=== PATIENT | female | born 1955 | race Caucasian/White ===

== ENCOUNTER 2020-06-08 16:06 | Emergency (ER) | payer SELFPAY ==
[2020-06-08 17:48] VITALS: BP 114/74; PULSE 108; TEMP 39.5; O2SAT 95; BMI 41.9
--- NOTE | 2020-06-08 17:49 | XR_ITS ---
EXAMINATION: XR CHEST CLINICAL INFORMATION: Fever. COMPARISON: Chest x-ray 03/25/[address] 03/25/2019 TECHNIQUE: Frontal view of the chest was obtained. FINDINGS: Chronic enlargement of cardiac silhouette. The lungs are adequately aerated. There is no lobar consolidation. Subtle linear opacity of the right lung base is most suggestive of atelectasis. No pleural effusion. No pneumothorax. Similar fullness of the superior mediastinum consistent with massively enlarged left lobe of the thyroid gland. XR/XR chest 1V IMPRESSION: No acute pulmonary pathology.
--- NOTE | 2020-06-08 18:00 | ED.FEVER ---
HPI - Fever General Chief Complaint: Dizziness Stated Complaint: fever Time Seen by Provider: 06/08/20 17:31 Source: patient Mode of arrival: ambulatory Limitations: no limitations History of Present Illness HPI Narrative: 64yoF c PMHx of prediabetic, HTN, CHF, arthritis and mass in neck presenting to the ED c c/o fever, generalized weakness and dizziness x 2 days. Patient reports she resides in [place] and came here to visit her son in her family and she arrived on the plane on Sunday night. Reports that she recently diagnosed herself with a UTI and self-medicated herself with antibiotics for UTI due to she was going more frequently although in small amounts. Denies any dysuria. Denies sick contacts. Denies any other symptoms complaints or concerns at this time. Related Data Previous Rx's Medication Instructions Recorded acetaminophen [Tylenol] 650 mg PO Q6H PRN #14 tab 06/08/20 ibuprofen 800 mg PO Q8H PRN #14 tab 06/08/20 levofloxacin 750 mg PO DAILY 3 Days #3 tab 06/08/20 Allergies Allergy/AdvReac Type Severity Reaction Status Date / Time No Known Allergies Allergy Unverified 04/29/20 19:43 [No Known Allergies*] Review of Systems Review of Systems: Constitutional : + Fever, + Chills, + Fatigue, + Malaise ENT/Mouth : No Ear Pain, No Nasal Congestion, No Sinus Pain, No Hoarseness, No sore throat, No Rhinorrhea Eyes: No Eye Pain, No Swelling, No Vision Changes Cardiovascular : No Chest Pain, No SOB, No Dyspnea on Exertion, No Orthopnea, No Edema, No Palpitations Respiratory : No Cough, No Sputum, No Wheezing, No Dyspnea Gastrointestinal : No Nausea, No Vomiting, No Diarrhea, No Constipation, No abdominal Pain, No Hematochezia, No Melena Genitourinary : no irregular bleeding, No Dysuria, No Urinary Frequency, No Hematuria, No Urinary Incontinence, No Urgency, No Flank Pain, No Urinary Flow Changes, No Hesitancy Musculoskeletal : No joint pain, No Myalgias, No Joint Swelling Skin : No Skin Lesions, No rash Neuro : + Weakness, + Dizziness, No Numbness, No Paresthesias, No Headache Heme/Lymph: No Lymphadenopathy Yes all other systems are reviewed and are negative PMFSH Past Medical History Attestation statement: The following information was validated with the patient. Medical History Arthritis CHF (congestive heart failure) Hypertension Mass in neck Prediabetes Social History Social History Advance Directives: No Advance Directives Information Provided: Yes Physical Exam Vital Signs: Vital Signs: Vital Signs Temp Pulse BP Pulse Ox 06/08/20 17:48 103.1 F H 108 H 114/74 95 Body Mass Index 41.9 vital signs have been reviewed as normal and appeared to be correct. Blood pressure normal. Heart rate tachycardic. Respiration rate normal. Temperature febrile. Oxygen saturation normal. Appearance: Alert. Oriented X3. No acute distress. Head: Normal external exam. Normocephalic. Atraumatic. No العر[place] signs noted. No raccoon eyes noted Eyes: PERRLA. EOMI. Conjunctiva and sclera normal. Eyelids normal. ENT: EAC normal. TM's Normal. Pharynx normal. Uvula midline. Moist mucous membranes. No trismus noted. No drooling noted. No muffled voice noted. Neck: Normal inspection. Neck supple. FROM. No adenopathy. Thyroid Normal. No meningeal signs. No neck mass noted. CVS: Normal heart rate and rhythm. Heart sound normal. No murmurs noted. Pulses normal throughout. Respiratory: No respiratory distress. Painless inspiration. Breath sounds normal. No wheezes/rales/rhonchi noted. Chest nontender. No accessory muscle usage noted or decreased air movement noted. Abdomen: Soft and nontender. Bowel sounds normal in all 4 quadrants. No distention noted. No organomegaly noted. No visible injury noted. Back: No CVA tenderness. Full range of motion noted. Skin: Skin warm and dry. Normal skin color. Normal skin turgor. No rashes/lesions/lacerations noted. Extremities: No lower extremity edema. Extremities exhibit normal range of motion. Extremities nontender. Neuro: Oriented X 3. No motor deficit. No sensory deficit. Reflexes normal. Course Course Course Narrative: 17:50PM - 64yoF c PMHx of prediabetic, HTN, CHF, arthritis and mass in neck presenting to the ED c c/o fever, generalized weakness and dizziness x 2 days. Patient reports she resides in [place] and came here to visit her son in her family and she arrived on the plane on Sunday night. Reports that she recently diagnosed herself with a UTI and self-medicated herself with antibiotics for UTI due to she was going more frequently although in small amounts. Denies any dysuria. Denies sick contacts. Denies any other symptoms complaints or concerns at this time. - Concern for COVID-19 vs PNA vs UTI - Plan: Labs, CXR, COVID-19 swab, EKG, Lactic acid, blood cultures. Provide IVFs and 975mg of tylenol then re-evaluate. Reevaluation(s) Reevaluation #1: - Patient's sodium at 132. Potassium 3.0. BUN 28. Calcium at 7.8. Random glucose 285. Mild elevation in AST/ALT. LDH mildly elevated. Otherwise all other labs are within normal limits including lactic acid which is 1.2. COVID-19 PCR swab negative. UA negative for nitrates although 5-9 white blood cells therefore will treat for UTI. Chest x-ray within normal limits no acute processes noted. - will replace the patient's potassium with p.o. potassium at this time. Will DC home with antibiotics for UTI and instructions to return if any new or worsening symptoms and to follow up with primary care provider. Patient understands agrees with this plan. Time: 20:04 MDM - Fever Medical Records Attestation: I reviewed the patient's medical records. Lab Data Attestation: I reviewed the patient's lab results. Result diagrams: 06/08/20 18:21 06/08/20 19:14 Labs: Lab Results 06/08/20 06/08/20 06/08/20 Range/Units 18:20 18:20 18:21 WBC 5.9 (4.8-10.8) X10*3/uL RBC 4.55 (4.20-5.50) X10*6/uL Hgb 13.5 (12.0-16.0) g/dl Hct 40.6 (37-47) % MCV 89.2 (80-98) fL MCH 29.7 (27.0-33.0) pg MCHC 33.3 (31.0-35.0) g/dl RDW 13.2 (11.0-16.0) % Plt Count 200 (160-400) X10*3/uL MPV 11.0 (9.4-12.3) fL Immature Gran % (Auto) 0.3 (0.0-0.4) % Neut % (Auto) 68.1 (45-73) % Lymph % (Auto) 20.6 (20-40) % [place] % (Auto) 10.7 (2-11) % Eos % (Auto) 0.0 (0-4) % Baso % (Auto) 0.3 (0-2) % Lymph # (Auto) 1.2 (1.2-4.9) X10*3/uL [place] # (Auto) 0.6 (0.1-1.2) X10*3/uL Eos # (Auto) 0.0 (0.0-0.4) X10*3/uL Baso # (Auto) 0.0 (0.0-0.2) X10*3/uL Abs Immat Gran (auto) 0.02 (0.00-0.03) X10*3/uL Absolute Neuts (auto) 4.0 (2.0-8.3) X10*3/uL Absolute Nucleated RBC 0.000 (0.0-0.012) X10*3/uL Nucleated RBC % (auto) 0.0 (0.0-0.2) /100WBC PT INR Sodium Cancelled Potassium Cancelled Chloride Cancelled Carbon Dioxide Cancelled Anion Gap Cancelled BUN Cancelled Creatinine Cancelled Estim Creat Clear Calc Cancelled Estimated GFR Cancelled Random Glucose Cancelled Lactic Acid (0.5-2.0) mmol/L Calcium Cancelled Magnesium Cancelled Ferritin Cancelled Total Bilirubin Cancelled Direct Bilirubin Cancelled AST Cancelled ALT Cancelled Alkaline Phosphatase Cancelled Lactate Dehydrogenase Cancelled B-Natriuretic Peptide (<100) pg/mL Total Protein Cancelled Albumin Cancelled Procalcitonin Cancelled Urine Color Urine Appearance Urine pH (5.0-8.0) Ur Specific [place] (1.005-1.025) Urine Protein (NEG-TRACE) MG/DL Urine Glucose (UA) (NEG) MG/DL Urine Ketones (NEG) MG/DL Urine Blood (NEG) Urine Nitrite (NEG) Ur Leukocyte Esterase (NEG) Urine RBC (0) /HPF Urine WBC (0-4) /HPF Ur Squamous Epith Cells /LPF Urine Bacteria /LPF Urine Mucus /LPF Coronavirus (PCR) (Negative) 06/08/20 06/08/20 06/08/20 Range/Units 18:21 18:21 18:21 WBC (4.8-10.8) X10*3/uL RBC (4.20-5.50) X10*6/uL Hgb (12.0-16.0) g/dl Hct (37-47) % MCV (80-98) fL MCH (27.0-33.0) pg MCHC (31.0-35.0) g/dl RDW (11.0-16.0) % Plt Count (160-400) X10*3/uL MPV (9.4-12.3) fL Immature Gran % (Auto) (0.0-0.4) % Neut % (Auto) (45-73) % Lymph % (Auto) (20-40) % [place] % (Auto) (2-11) % Eos % (Auto) (0-4) % Baso % (Auto) (0-2) % Lymph # (Auto) (1.2-4.9) X10*3/uL [place] # (Auto) (0.1-1.2) X10*3/uL Eos # (Auto) (0.0-0.4) X10*3/uL Baso # (Auto) (0.0-0.2) X10*3/uL Abs Immat Gran (auto) (0.00-0.03) X10*3/uL Absolute Neuts (auto) (2.0-8.3) X10*3/uL Absolute Nucleated RBC (0.0-0.012) X10*3/uL Nucleated RBC % (auto) (0.0-0.2) /100WBC PT Cancelled INR Cancelled Sodium Potassium Chloride Carbon Dioxide Anion Gap BUN Creatinine Estim Creat Clear Calc Estimated GFR Random Glucose Lactic Acid (0.5-2.0) mmol/L Calcium Magnesium Ferritin Total Bilirubin Direct Bilirubin AST ALT Alkaline Phosphatase Lactate Dehydrogenase B-Natriuretic Peptide 87 (<100) pg/mL Total Protein Albumin Procalcitonin Urine Color Urine Appearance Urine pH (5.0-8.0) Ur Specific [place] (1.005-1.025) Urine Protein (NEG-TRACE) MG/DL Urine Glucose (UA) (NEG) MG/DL Urine Ketones (NEG) MG/DL Urine Blood (NEG) Urine Nitrite (NEG) Ur Leukocyte Esterase (NEG) Urine RBC (0) /HPF Urine WBC (0-4) /HPF Ur Squamous Epith Cells /LPF Urine Bacteria /LPF Urine Mucus /LPF Coronavirus (PCR) NEGATIVE (Negative) 06/08/20 06/08/20 06/08/20 Range/Units 18:21 18:44 19:14 WBC (4.8-10.8) X10*3/uL RBC (4.20-5.50) X10*6/uL Hgb (12.0-16.0) g/dl Hct (37-47) % MCV (80-98) fL MCH (27.0-33.0) pg MCHC (31.0-35.0) g/dl RDW (11.0-16.0) % Plt Count (160-400) X10*3/uL MPV (9.4-12.3) fL Immature Gran % (Auto) (0.0-0.4) % Neut % (Auto) (45-73) % Lymph % (Auto) (20-40) % [place] % (Auto) (2-11) % Eos % (Auto) (0-4) % Baso % (Auto) (0-2) % Lymph # (Auto) (1.2-4.9) X10*3/uL [place] # (Auto) (0.1-1.2) X10*3/uL Eos # (Auto) (0.0-0.4) X10*3/uL Baso # (Auto) (0.0-0.2) X10*3/uL Abs Immat Gran (auto) (0.00-0.03) X10*3/uL Absolute Neuts (auto) (2.0-8.3) X10*3/uL Absolute Nucleated RBC (0.0-0.012) X10*3/uL Nucleated RBC % (auto) (0.0-0.2) /100WBC PT INR Sodium 132 L Potassium 3.0 L Chloride 94 L Carbon Dioxide 27 Anion Gap 14 BUN 28 H Creatinine 1.34 Estim Creat Clear Calc 40.8 Estimated GFR 40 Random Glucose 285 H Lactic Acid 1.2 (0.5-2.0) mmol/L Calcium 7.2 L Magnesium Ferritin Total Bilirubin Direct Bilirubin AST ALT Alkaline Phosphatase Lactate Dehydrogenase B-Natriuretic Peptide (<100) pg/mL Total Protein Albumin Procalcitonin Urine Color YELLOW Urine Appearance HAZY Urine pH 6.0 (5.0-8.0) Ur Specific [place] 1.025 (1.005-1.025) Urine Protein 2+ H (NEG-TRACE) MG/DL Urine Glucose (UA) 250 H (NEG) MG/DL Urine Ketones NEG (NEG) MG/DL Urine Blood 2+ H (NEG) Urine Nitrite NEG (NEG) Ur Leukocyte Esterase NEG (NEG) Urine RBC 1-4 (0) /HPF Urine WBC 5-9 H (0-4) /HPF Ur Squamous Epith Cells 2+ /LPF Urine Bacteria 2+ /LPF Urine Mucus 1+ /LPF Coronavirus (PCR) (Negative) 06/08/20 06/08/20 06/08/20 Range/Units 19:14 19:14 19:14 WBC (4.8-10.8) X10*3/uL RBC (4.20-5.50) X10*6/uL Hgb (12.0-16.0) g/dl Hct (37-47) % MCV (80-98) fL MCH (27.0-33.0) pg MCHC (31.0-35.0) g/dl RDW (11.0-16.0) % Plt Count (160-400) X10*3/uL MPV (9.4-12.3) fL Immature Gran % (Auto) (0.0-0.4) % Neut % (Auto) (45-73) % Lymph % (Auto) (20-40) % [place] % (Auto) (2-11) % Eos % (Auto) (0-4) % Baso % (Auto) (0-2) % Lymph # (Auto) (1.2-4.9) X10*3/uL [place] # (Auto) (0.1-1.2) X10*3/uL Eos # (Auto) (0.0-0.4) X10*3/uL Baso # (Auto) (0.0-0.2) X10*3/uL Abs Immat Gran (auto) (0.00-0.03) X10*3/uL Absolute Neuts (auto) (2.0-8.3) X10*3/uL Absolute Nucleated RBC (0.0-0.012) X10*3/uL Nucleated RBC % (auto) (0.0-0.2) /100WBC PT INR Sodium Potassium Chloride Carbon Dioxide Anion Gap BUN Creatinine Estim Creat Clear Calc Estimated GFR Random Glucose Lactic Acid (0.5-2.0) mmol/L Calcium Magnesium 2.6 Ferritin Total Bilirubin 0.4 Direct Bilirubin 0.2 AST 42 H ALT 40 H Alkaline Phosphatase 92 Lactate Dehydrogenase 257 H B-Natriuretic Peptide (<100) pg/mL Total Protein 5.9 L Albumin 3.3 L Procalcitonin Urine Color Urine Appearance Urine pH (5.0-8.0) Ur Specific [place] (1.005-1.025) Urine Protein (NEG-TRACE) MG/DL Urine Glucose (UA) (NEG) MG/DL Urine Ketones (NEG) MG/DL Urine Blood (NEG) Urine Nitrite (NEG) Ur Leukocyte Esterase (NEG) Urine RBC (0) /HPF Urine WBC (0-4) /HPF Ur Squamous Epith Cells /LPF Urine Bacteria /LPF Urine Mucus /LPF Coronavirus (PCR) (Negative) 06/08/20 06/08/20 Range/Units 19:14 19:14 WBC (4.8-10.8) X10*3/uL RBC (4.20-5.50) X10*6/uL Hgb (12.0-16.0) g/dl Hct (37-47) % MCV (80-98) fL MCH (27.0-33.0) pg MCHC (31.0-35.0) g/dl RDW (11.0-16.0) % Plt Count (160-400) X10*3/uL MPV (9.4-12.3) fL Immature Gran % (Auto) (0.0-0.4) % Neut % (Auto) (45-73) % Lymph % (Auto) (20-40) % [place] % (Auto) (2-11) % Eos % (Auto) (0-4) % Baso % (Auto) (0-2) % Lymph # (Auto) (1.2-4.9) X10*3/uL [place] # (Auto) (0.1-1.2) X10*3/uL Eos # (Auto) (0.0-0.4) X10*3/uL Baso # (Auto) (0.0-0.2) X10*3/uL Abs Immat Gran (auto) (0.00-0.03) X10*3/uL Absolute Neuts (auto) (2.0-8.3) X10*3/uL Absolute Nucleated RBC (0.0-0.012) X10*3/uL Nucleated RBC % (auto) (0.0-0.2) /100WBC PT INR Sodium Potassium Chloride Carbon Dioxide Anion Gap BUN Creatinine Estim Creat Clear Calc Estimated GFR Random Glucose Lactic Acid (0.5-2.0) mmol/L Calcium Magnesium Ferritin 1670 H Total Bilirubin Direct Bilirubin AST ALT Alkaline Phosphatase Lactate Dehydrogenase B-Natriuretic Peptide (<100) pg/mL Total Protein Albumin Procalcitonin 2.34 Urine Color Urine Appearance Urine pH (5.0-8.0) Ur Specific [place] (1.005-1.025) Urine Protein (NEG-TRACE) MG/DL Urine Glucose (UA) (NEG) MG/DL Urine Ketones (NEG) MG/DL Urine Blood (NEG) Urine Nitrite (NEG) Ur Leukocyte Esterase (NEG) Urine RBC (0) /HPF Urine WBC (0-4) /HPF Ur Squamous Epith Cells /LPF Urine Bacteria /LPF Urine Mucus /LPF Coronavirus (PCR) (Negative) ECG Data ECG #1: Attestation: I personally reviewed and interpreted this ECG as follows: ECG interpretation date: 06/08/20 ECG interpretation time: 18:15 Prior ECG tracings: available for review Interpretation: Sinus tachycardia with ventricular rate of 105 with left atrial enlargement with a right bundle-branch block with left anterior fascicular block. No acute ischemic changes noted and similar when compared to prior EKG on 03/25/2019 Critical Care Time Critical Care Time Critical Care Time: Yes Total Critical Care Time: 60 Attestation: I personally attest to this time spent taking care of the patient Discharge Plan Discharge Clinical Impression: Acute hypokalemia, Acute hyponatremia, Acute hyperglycemia Fever Qualifiers: Fever type: unspecified Qualified Code(s): R50.9 - Fever, unspecified UTI (urinary tract infection) Qualifiers: Urinary tract infection type: acute cystitis Hematuria presence: with hematuria Qualified Code(s): N30.01 - Acute cystitis with hematuria Patient Disposition: Home, Self-Care Instructions: Hyponatremia (ED), Hypokalemia (ED), Diabetic Hyperglycemia (ED), Urinary Tract Infection in Older Adults (ED) Prescriptions: New levofloxacin 750 mg tablet 750 mg PO DAILY 3 Days Qty: 3 RF: 0 acetaminophen [Tylenol] 325 mg tablet 650 mg PO Q6H PRN (Reason: fever or pain) Qty: 14 RF: 0 ibuprofen 800 mg tablet 800 mg PO Q8H PRN (Reason: pain) Qty: 14 RF: 0 Print Language: Irish
--- NOTE | 2020-06-08 18:02 | ECG_ITS ---
Test Reason : DIZZINESS Blood Pressure : / mmHG Vent. Rate : 105 BPM Atrial Rate : 105 BPM P-R Int : 126 ms QRS Dur : 146 ms QT Int : 416 ms P-R-T Axes : 037 -75 036 degrees QTc Int : 549 ms Sinus tachycardia Possible Left atrial enlargement Right bundle branch block Left anterior fascicular block Bifascicular block Abnormal ECG When compared with ECG of 25-MAR-2019 10:14, No significant change was found Heart rate has increased Referred By: Luba Marin Electronically Signed By:BEAR SWANSON MD
[2020-06-08] MEDS: 0.9 % Sodium Chloride 1,000 ML 999 ML IVCONT (18:22)
[2020-06-08] MEDS: Acetaminophen 325 MG TABLET 975 MG PO (18:23)
--- NOTE | 2020-06-08 18:34 | PC.NURSE ---
Pt has clear and = bronchial and vesicular ls, pt is speaking in full clear sentences. pt is sinus with rbbb pattern on monitor pt skin is wpd, in no distress. labs sent and are pending. call estrada in reach.
[2020-06-08 18:37] LABS: MANUAL DIFF FLAG NO
[2020-06-08 18:38] LABS: Glucose Urine UA 250 MG/DL (NEG); Leukocyte Esterase Urine NEG (NEG); Nitrite Urine NEG (NEG); Specific Gravity - Urine 1.025 (1.005-1.025); Urine Blood 2+ (NEG); Urine Ketones NEG (NEG); Urine Protein 2+ MG/DL (NEG-TRACE)
[2020-06-08 18:39] LABS: Basophils Percent Auto 0.3 % (0-2); Hematocrit 40.6 % (37-47); Hemoglobin 13.5 g/dl (12.0-16.0); Imm Gran Abs Auto 0.02 X10*3/uL (0.00-0.03); Imm Gran Pct Auto 0.3 % (0.0-0.4); Lymphocytes Absolute Auto 1.2 X10*3/uL (1.2-4.9); Lymphocytes Percent Auto 20.6 % (20-40); Mean Corpuscular HGB Conc 33.3 g/dl (31.0-35.0); Mean Corpuscular Hemoglobin 29.7 pg (27.0-33.0); Mean Corpuscular Volume 89.2 fL (80-98); Monocytes Absolute Auto 0.6 X10*3/uL (0.1-1.2); Monocytes Percent Auto 10.7 % (2-11); Neutrophils Percent Auto 68.1 % (45-73); Platelet Count 200 X10*3/uL (160-400); Red Blood Count 4.55 X10*6/uL (4.20-5.50); Red Cell Distribution Width 13.2 % (11.0-16.0); White Blood Count 5.9 X10*3/uL (4.8-10.8)
[2020-06-08 18:51] LABS: Appearance Urine HAZY; Color Urine YELLOW; UACC CULT YES
[2020-06-08 18:52] LABS: Bacteria Urine 2+ /LPF; Mucus Urine 1+ /LPF; Squamous Epithelial Cell Urine 2+ /LPF
[2020-06-08 19:11] LABS: Lactic Acid 1.2 mmol/L (0.5-2.0)
[2020-06-08 19:21] LABS: B Type Natriuretic Peptide 87 pg/mL (<100)
[2020-06-08] MEDS: levoFLOXacin/D5W 750 MG/150 ML PIGGYBACK 100 MG IV (19:27)
[2020-06-08 19:33] LABS: SARS COV2 PCR INHOUSE NEGATIVE (Negative)
[2020-06-08 19:36] LABS: Magnesium 2.6 mg/dL (1.6-2.6)
[2020-06-08 19:37] LABS: Lactate Dehydrogenase 257 U/L (122-220)
[2020-06-08 19:46] LABS: Anion Gap 14 (12-20); Blood Urea Nitrogen 28 mg/dL (9-16); Calcium 7.2 mg/dL (8.4-10.2); Carbon Dioxide 27 mmol/L (22-29); Chloride 94 mmol/L (96-108); Creatinine Clr Calc Pharmacy 40.8; Estimated Glomerular Filt Rate 40; Glucose Random 285 mg/dL (60-115); Sodium 132 mmol/L (135-145)
[2020-06-08 19:51] LABS: Alanine Aminotransferase 40 U/L (0-31); Albumin Level 3.3 g/dL (3.5-5.0); Alkaline Phosphatase 92 U/L (39-117); Aspartate Amino Transferase 42 U/L (5-31); Bilirubin Direct 0.2 mg/dL (0.0-0.5); Bilirubin Total 0.4 mg/dL (0.0-1.0); Total Protein 5.9 g/dL (6.5-8.0)
[2020-06-08 20:05] LABS: Procalcitonin 2.34 ng/mL
--- NOTE | 2020-06-08 20:16 | PC.NURSE ---
PATIENT'S SON JANETH CALLS AT THIS TIME TO SPEAK WITH RN FOR UPDATE. RN INDISPOSED WITH DIFFERENT PATIENT SO SON LEAVES CALL BACK NUMBER [phone] AND IS ASSURED THAT RN WILL CALL BACK IN A TIMELY MANNER.
[2020-06-08 20:23] LABS: Ferritin 1670 ng/mL (10-250)
[2020-06-08 20:38] VITALS: PULSE 88; RESP 16; TEMP 37.2
[2020-06-08] MEDS: Potassium Chloride ER 20 MEQ TAB.ER.PRT PO (20:49)
== END 2020-06-08 21:35 | disposition home or self-care (01) ==
PROVIDERS: Physician Assistant Medical; Emergency Provider Internal Medicine
DX: R50.9 Fever, unspecified (principal); N30.01 Acute cystitis with hematuria; I10 Essential (primary) hypertension; Z79.899 Other long term (current) drug therapy; Z20.828 Contact with and (suspected) exposure to other viral communicable diseases
CPT/HCPCS: 36415; 71045; 80048; 80076; 81001; 82728; 83605; 83615; 83735; 83880; 84145; 85025; 87040; 87076; 87086; 87088; 87185; 87186; 87635; 93005; 96361; 96365; 99284; 99291; J1956